=== PATIENT | female | born 1990 | race Caucasian/White ===

== ENCOUNTER 2021-06-21 14:51 | Inpatient (IN) | payer BC, OTHER ==
[2021-06-21] MEDS ORDERED: Lidocaine 1% 50 ML MDV INJECT SCH (15:34)
[2021-06-21] MEDS ORDERED: Nalbuphine 10 MG/1 ML Vial IVPUSH PRN (15:34)
[2021-06-21] MEDS ORDERED: Ondansetron 4 MG/2 ML SDV IVPUSH PRN (15:34)
[2021-06-21] MEDS ORDERED: Sodium Chloride 0.9% 10 ML Syringe FLUSH PRN (15:34)
[2021-06-21] MEDS ORDERED: Oxytocin/Lactated Ringers 10 UNIT/1,000 ML BAG IV SCH ×2 (15:45)
[2021-06-21] MEDS ORDERED: Misoprostol 25 MCG (1/4 of 100 MCG) Tab VAG ONE (15:48)
--- NOTE | 2021-06-21 18:04 | PCM.PREANE ---
Preanesthetic Assessment - Procedure Proposed Procedure: Labor epidural - Anesthesia/Transfusion/Family Hx Anesthesia History: No Prior Anesthesia Family History of Anesthesia Reaction: No Transfusion History: No Prior Transfusion(s) Intubation History: Unknown - Review of Systems General: No Symptoms Pulmonary: No Symptoms Cardiovascular: No Symptoms Gastrointestinal: Abdominal Pain (uterine contractions) Neurological: Headache, Other (carpal tunnel with ) - Physical Assessment NPO Status Date: 06/21/21 NPO Status Time: 18:00 Vital Signs: Last Vital Signs Temp 98.4 F 06/21/21 15:08 Pulse 81 06/21/21 15:08 Resp 16 06/21/21 15:08 BP 149/89 H 06/21/21 15:08 Pulse Ox Height: 1.78 m Weight: 102.058 kg ASA Class: 2 Mental Status: Alert & Oriented x3 Airway Class: Mallampati = 2 Thyro-Mental Finger Breadths: 3 Mouth Opening Finger Breadths: 3 ROM/Head Extension: Full Lungs: Clear to Auscultation, Normal Respiratory Effort Cardiovascular: Regular Rate, Regular Rhythm, No Murmurs - Lab Values: Laboratory Last Values WBC 9.91 K/mm3 (3.98-10.04) 06/21/21 16:00 RBC 3.96 M/mm3 (3.98-5.22) L 06/21/21 16:00 Hgb 11.6 gm/dl (11.2-15.7) 06/21/21 16:00 Hct 36.2 % (34.1-44.9) 06/21/21 16:00 MCV 91.4 fl (79.4-94.8) 06/21/21 16:00 MCH 29.3 pg (25.6-32.2) 06/21/21 16:00 MCHC 32.0 g/dl (32.2-35.5) L 06/21/21 16:00 RDW Std Deviation 43.4 fL (36.4-46.3) 06/21/21 16:00 Plt Count 241 K/mm3 (182-369) 06/21/21 16:00 MPV 11.5 fl (9.4-12.3) 06/21/21 16:00 Neut % (Auto) 72.3 % (34.0-71.1) H 06/21/21 16:00 Lymph % (Auto) 16.9 % (19.3-51.7) L 06/21/21 16:00 [place] % (Auto) 9.3 % (4.7-12.5) 06/21/21 16:00 Eos % (Auto) 0.8 (0.7-5.8) 06/21/21 16:00 Baso % (Auto) 0.2 % (0.1-1.2) 06/21/21 16:00 Neut # (Auto) 7.17 K/mm3 (1.56-6.13) H 06/21/21 16:00 Lymph # (Auto) 1.67 K/mm3 (1.18-3.74) 06/21/21 16:00 [place] # (Auto) 0.92 K/mm3 (0.24-0.36) H 06/21/21 16:00 Eos # (Auto) 0.08 K/mm3 (0.04-0.36) 06/21/21 16:00 Baso # (Auto) 0.02 K/mm3 (0.01-0.08) 06/21/21 16:00 Sodium 140 mEq/L (136-145) 06/21/21 15:34 Potassium 3.8 mEq/L (3.5-5.1) 06/21/21 15:34 Chloride 106 mEq/L (98-107) 06/21/21 15:34 Carbon Dioxide 24 mEq/L (21-32) 06/21/21 15:34 Anion Gap 13.8 (5-15) 06/21/21 15:34 BUN 8 mg/dL (7-18) 06/21/21 15:34 Creatinine 0.7 mg/dL (0.55-1.02) 06/21/21 15:34 Est Cr Clr Drug Dosing 124.77 mL/min 06/21/21 15:34 Estimated GFR (MDRD) > 60 mL/min (>60) 06/21/21 15:34 BUN/Creatinine Ratio 11.4 (14-18) L 06/21/21 15:34 Glucose 72 mg/dL (70-99) 06/21/21 15:34 Calcium 9.2 mg/dL (8.5-10.1) 06/21/21 15:34 Total Bilirubin 0.1 mg/dL (0.2-1.0) L 06/21/21 15:34 AST 15 U/L (15-37) 06/21/21 15:34 ALT 16 U/L (14-59) 06/21/21 15:34 Alkaline Phosphatase 161 U/L (46-116) H 06/21/21 15:34 Total Protein 6.4 g/dl (6.4-8.2) 06/21/21 15:34 Albumin 2.5 g/dl (3.4-5.0) L 06/21/21 15:34 Globulin 3.9 gm/dL 06/21/21 15:34 Albumin/Globulin Ratio 0.6 (1-2) L 06/21/21 15:34 Ur Random Creatinine 37.1 mg/dL (30.0-125.0) 06/21/21 15:34 U Random Total Protein 8.5 mg/dL (0.0-11.8) 06/21/21 15:34 Protein/Creatinin Ratio 229.1 mg/g (0-149) H 06/21/21 15:34 Blood Type O POSITIVE 06/21/21 16:30 Gel Antibody Screen Negative 06/21/21 16:30 - Allergies Allergies/Adverse Reactions: Allergies Allergy/AdvReac Type Severity Reaction Status Date / Time No Known Allergies Allergy Verified 06/21/21 15:07 - Acknowledgements Anesthesia Type Planned: Epidural Pt an Appropriate Candidate for the Planned Anesthesia: Yes Alternatives and Risks of Anesthesia Discussed w Pt/Guardian: Yes Pt/Guardian Understands and Agrees with Anesthesia Plan: Yes PreAnesthesia Questionnaire HEENT History: Reports: Impaired Vision Cardiovascular History: Reports: None Respiratory History: 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) Gastrointestinal History: Reports: GERD Genitourinary History: Reports: None 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: , Spontaneous Musculoskeletal History: Reports: None Neurological History: Reports: None Psychiatric History: Reports: None Endocrine/Metabolic History: Reports: None Hematologic History: Reports: None Immunologic History: Reports: None Oncologic (Cancer) History: Reports: None Dermatologic History: Reports: None - Infectious Disease History Infectious Disease History: Reports: Other (See Below) Other Infectious Disease History: covid May 2020 - Past Surgical History HEENT Surgical History: Reports: Oral Surgery (wisdom teeth) - SUBSTANCE USE Tobacco Use Status *Q: Never Tobacco User Tobacco Use Within Last Twelve Months: No Second Hand Smoke Exposure: No Days Per Week of Alcohol Use: 0 Number of Drinks Per Day: 0 Total Drinks Per Week: 0 Recreational Drug Use History: No - HOME MEDS Home Medications: Home Meds Albuterol Sulfate [Proair Digihaler] 90 mcg IH ASDIRECTED PRN 06/21/21 [History] #103/Iron Fumarate/Fa [ ] 1 each PO DAILY 06/21/21 [History] - CURRENT (IN HOUSE) MEDS Current Meds: Current Medications Lactated Ringer's (Ringers, Lactated) 1,000 mls @ 100 mls/hr IV ASDIRECTED ASHLEY Oxytocin/Lactated Ringer's (Pitocin In Lr 10 Units/1,000 Ml) 10 unit in 1,000 mls @ 12 mls/hr IV TITRATE ASHLEY; Protocol Oxytocin/Lactated Ringer's (Pitocin In Lr 10 Units/1,000 Ml) 10 unit in 1,000 mls @ 500 mls/hr IV .CONTINUOUS ASHLEY Lidocaine HCl (Lidocaine 1% 50 Ml Mdv) 50 ml INJECT ONETIME ASHLEY Nalbuphine HCl (Nalbuphine 10 Mg/1 Ml Vial) 10 mg IVPUSH Q2H PRN PRN Reason: Pain Ondansetron HCl (Ondansetron 4 Mg/2 Ml Sdv) 4 mg IVPUSH Q4H PRN PRN Reason: Nausea/Vomiting Sodium Chloride (Sodium Chloride 0.9% 10 Ml Syringe) 10 ml FLUSH ASDIRECTED PRN PRN Reason: Keep Vein Open Discontinued Medications Misoprostol (Misoprostol 25 Mcg (1/4 Of 100 Mcg) Tab) 25 mcg VAG ONETIME ONE Stop: 06/21/21 15:49
[2021-06-21] MEDS ORDERED: ePHEDrine 50 MG/ML SDV IVPUSH PRN (18:22)
[2021-06-21] MEDS ORDERED: diphenhydrAMINE 50 MG/ML SDV IVPUSH PRN (18:22)
[2021-06-21] MEDS ORDERED: Bupivacaine/fentaNYL/NS 100 ML Bag EPIDUR PRN (18:22)
[2021-06-21] MEDS ORDERED: fentaNYL 100 MCG/2 ML SDV EPIDUR PRN (18:22)
--- NOTE | 2021-06-21 20:10 | PCM.LDHP ---
L&D History of Present Illness - General Date of Service: 06/21/21 Admit Problem/Dx: Patient Status Order with Admit Dx/Problem 06/21/21 15:34 Patient Status [ADT] Routine Admission Diagnosis/Problem Admission Diagnosis/Problem Source of Information: Patient History Limitations: Reports: No Limitations - History of Present Illness Introduction:: Magdalena Castro is a 30-year-old -0-1-0 female at 38 weeks 5 days (EVA 06/30/2021) by a 7-week ultrasound who presents with concerns about blood pressures at home. She reports that she was having multiple blood pressures into the 140s systolic that would go down into the 120s to 130s with rest. She did not mention what the diastolic blood pressures were. She was first noted to have an elevated blood pressure in the clinic when she was seen by her regular RIP TAILER last week. She had been monitoring her blood pressures throughout the weekend and into today. She has had a mild headache at home and did take Tylenol and feels like it did improve. She denies any significant headache. She denies any headache at this time. She denies any epigastric pain or spots in her vision. She denies any contractions or cramping. Denies any leaking of fluid or vaginal bleeding. Reports that she is having good movement. Timing/Duration: Reports: intermittent Associated Symptoms: Denies: vaginal bleeding, vaginal discharge, vaginal fluid Present Illness Comments:: Magdalena Castro is a 30-year-old -0-1-0 female at 38 weeks 5 days (EVA 06/30/2021) by a 7-week ultrasound who presents with elevated blood pressures. Patient has had routine care with Dr. Souza starting at 7 weeks gestational age. Her has been overall uncomplicated. She had a normal anatomy ultrasound. She received the Tdap vaccine on 04/08/2021. She received the first dose of the COVID-19 vaccine on 06/01/2021. She received influenza vaccine on 06/08/2021. Her GBS swab was negative. Her is complicated by: * Gestational hypertension noted on admission to labor and delivery with ongoing multiple mild range blood pressures into the 140s to 150s systolic. Her lab work was not consistent with preeclampsia and she did not have any severe features of preeclampsia. RIP TAILER history -0-1-0 G1: 05/2020, SAB, 6 weeks gestational age G2: Current labs Blood type: O+ Antibody screen: Negative First trimester hematocrit/hemoglobin: 46.0%/15.1 on 12/07/2020 Platelets: 290 on 12/07/2020 Rubella status: Immune Hepatitis B surface antigen: Negative RPR: Negative Hepatitis C: Negative HIV: Negative Gonorrhea: Negative Chlamydia: Negative One hour glucose tolerance test: 105 Second trimester hematocrit/hemoglobin: 38.4%/12.9 on 04/08/2021 Platelets: 289 on 04/08/2021 GBS status: Negative - Related Data Allergies/Adverse Reactions: Allergies Allergy/AdvReac Type Severity Reaction Status Date / Time No Known Allergies Allergy Verified 06/21/21 15:07 Home Medications: Home Meds Albuterol Sulfate [Proair Digihaler] 90 mcg IH ASDIRECTED PRN 06/21/21 [History] #103/Iron Fumarate/Fa [ ] 1 each PO DAILY 06/21/21 [History] Past Medical History HEENT History: Reports: Impaired Vision Cardiovascular History: Reports: None Respiratory History: 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) Gastrointestinal History: Reports: GERD Genitourinary History: Reports: None RIP TAILER History: Reports: , Spontaneous : 2 Para: 0 Musculoskeletal History: Reports: None Neurological History: Reports: None Psychiatric History: Reports: None Endocrine/Metabolic History: Reports: None Hematologic History: Reports: None Immunologic History: Reports: None Oncologic (Cancer) History: Reports: None Dermatologic History: Reports: None - Infectious Disease History Infectious Disease History: Reports: Other (See Below) Other Infectious Disease History: covid May 2020 - Past Surgical History HEENT Surgical History: Reports: Oral Surgery (wisdom teeth) Social & Family History - Family History Family Medical History: Unobtainable - Tobacco Use Tobacco Use Status *Q: Never Tobacco User Second Hand Smoke Exposure: No - Tobacco Core Measures Tobacco Use/Smoking Within Last 30 Days: No Smokeless Tobacco Use in Last 30 Days: No - Caffeine Use Caffeine Use: Reports: Coffee, Soda - Alcohol Use Days Per Week of Alcohol Use: 0 Number of Drinks Per Day: 0 Total Drinks Per Week: 0 - Recreational Drug Use Recreational Drug Use: No - Living Situation & Occupation Living situation: Reports: , with Spouse H&P Review of Systems - Review of Systems: Review Of Systems: See Below General: Denies: Fever, Chills, Malaise, Weakness HEENT: Reports: Glasses, Headaches (Mild that have been intermittent throughout the day). Denies: Rhinitis, Post Nasal Drip, Sinus Congestion, Sore Throat, Visual Changes Pulmonary: Denies: Shortness of Breath, Wheezing, Pleuritic Chest Pain, Cough Cardiovascular: Denies: Chest Pain, Palpitations, Dyspnea on Exertion, Orthopnea Gastrointestinal: Denies: Abdominal Pain, Constipation, Diarrhea, Nausea, Vomiti ng Genitourinary: Denies: Dysuria, Frequency, Burning, Pain, Urgency Musculoskeletal: Reports: Back Pain (and pelvic pain of ) Skin: Denies: Rash, Lesions Psychiatric: Denies: Depression, Anxiety L&D Exam - Exam Exam: See Below - Vital Signs Vital Signs: Last Vital Signs Temp 36.9 C 06/21/21 15:08 Pulse 81 06/21/21 15:08 Resp 16 06/21/21 15:08 BP 149/89 H 06/21/21 15:08 Pulse Ox Weight: 102.058 kg - OB Specific Contraction Duration (sec): 45-60 Contraction Frequency (min): 5-7 Contraction Intensity: Mild to Moderate Movement: Active Heart Tones: Present Heart Tones per Min: 135 (+15 x 15 accelerations, no decelerations) Heart Rate (FHR) Variability: Moderate (6-25 bpm) Presentation: Vertex (By bedside ultrasound) Estimated Weight: 8-8.5 pounds by Cristian - Pretty Score Pretty Score Cervix Position: Posterior Pretty Score Consistency: Soft Pretty Score Effacement: 31-50% (50%) Pretty Score Dilation: 1-2 cm (0.5 cm) Pretty Score 's Station: -3 Pretty Score Total: 4 - Exam General: Alert, Oriented HEENT: Conjunctiva Clear, EOMI Neck: Supple, Trachea Midline Lungs: Clear to Auscultation, Normal Respiratory Effort Cardiovascular: Regular Rate, Regular Rhythm GI/Abdominal Exam: Soft, Non-Tender, No Distention, Other (Gravid). No: Guarding, Rigid, Rebound Genitourinary: Normal external exam Extremities: Normal Inspection, No Pedal Edema Skin: Warm, Dry, Intact Psychiatric: Alert, Normal Affect, Normal Mood - Patient Data Lab Results Last 24 hrs: Laboratory Results - last 24 hr 06/21/21 06/21/21 06/21/21 Range/Units 15:34 15:34 16:00 WBC 9.91 (3.98-10.04) K/mm3 RBC 3.96 L (3.98-5.22) M/mm3 Hgb 11.6 (11.2-15.7) gm/dl Hct 36.2 (34.1-44.9) % MCV 91.4 (79.4-94.8) fl MCH 29.3 (25.6-32.2) pg MCHC 32.0 L (32.2-35.5) g/dl RDW Std Deviation 43.4 (36.4-46.3) fL Plt Count 241 (182-369) K/mm3 MPV 11.5 (9.4-12.3) fl Neut % (Auto) 72.3 H (34.0-71.1) % Lymph % (Auto) 16.9 L (19.3-51.7) % [place] % (Auto) 9.3 (4.7-12.5) % Eos % (Auto) 0.8 (0.7-5.8) Baso % (Auto) 0.2 (0.1-1.2) % Neut # (Auto) 7.17 H (1.56-6.13) K/mm3 Lymph # (Auto) 1.67 (1.18-3.74) K/mm3 [place] # (Auto) 0.92 H (0.24-0.36) K/mm3 Eos # (Auto) 0.08 (0.04-0.36) K/mm3 Baso # (Auto) 0.02 (0.01-0.08) K/mm3 Sodium 140 (136-145) mEq/L Potassium 3.8 (3.5-5.1) mEq/L Chloride 106 (98-107) mEq/L Carbon Dioxide 24 (21-32) mEq/L Anion Gap 13.8 (5-15) BUN 8 (7-18) mg/dL Creatinine 0.7 (0.55-1.02) mg/dL Est Cr Clr Drug Dosing 124.77 mL/min Estimated GFR (MDRD) > 60 (>60) mL/min BUN/Creatinine Ratio 11.4 L (14-18) Glucose 72 (70-99) mg/dL Calcium 9.2 (8.5-10.1) mg/dL Total Bilirubin 0.1 L (0.2-1.0) mg/dL AST 15 (15-37) U/L ALT 16 (14-59) U/L Alkaline Phosphatase 161 H (46-116) U/L Total Protein 6.4 (6.4-8.2) g/dl Albumin 2.5 L (3.4-5.0) g/dl Globulin 3.9 gm/dL Albumin/Globulin Ratio 0.6 L (1-2) Ur Random Creatinine 37.1 (30.0-125.0) mg/dL U Random Total Protein 8.5 (0.0-11.8) mg/dL Protein/Creatinin Ratio 229.1 H (0-149) mg/g Blood Type Gel Antibody Screen 06/21/21 Range/Units 16:30 WBC (3.98-10.04) K/mm3 RBC (3.98-5.22) M/mm3 Hgb (11.2-15.7) gm/dl Hct (34.1-44.9) % MCV (79.4-94.8) fl MCH (25.6-32.2) pg MCHC (32.2-35.5) g/dl RDW Std Deviation (36.4-46.3) fL Plt Count (182-369) K/mm3 MPV (9.4-12.3) fl Neut % (Auto) (34.0-71.1) % Lymph % (Auto) (19.3-51.7) % [place] % (Auto) (4.7-12.5) % Eos % (Auto) (0.7-5.8) Baso % (Auto) (0.1-1.2) % Neut # (Auto) (1.56-6.13) K/mm3 Lymph # (Auto) (1.18-3.74) K/mm3 [place] # (Auto) (0.24-0.36) K/mm3 Eos # (Auto) (0.04-0.36) K/mm3 Baso # (Auto) (0.01-0.08) K/mm3 Sodium (136-145) mEq/L Potassium (3.5-5.1) mEq/L Chloride (98-107) mEq/L Carbon Dioxide (21-32) mEq/L Anion Gap (5-15) BUN (7-18) mg/dL Creatinine (0.55-1.02) mg/dL Est Cr Clr Drug Dosing mL/min Estimated GFR (MDRD) (>60) mL/min BUN/Creatinine Ratio (14-18) Glucose (70-99) mg/dL Calcium (8.5-10.1) mg/dL Total Bilirubin (0.2-1.0) mg/dL AST (15-37) U/L ALT (14-59) U/L Alkaline Phosphatase (46-116) U/L Total Protein (6.4-8.2) g/dl Albumin (3.4-5.0) g/dl Globulin gm/dL Albumin/Globulin Ratio (1-2) Ur Random Creatinine (30.0-125.0) mg/dL U Random Total Protein (0.0-11.8) mg/dL Protein/Creatinin Ratio (0-149) mg/g Blood Type O POSITIVE Gel Antibody Screen Negative Result Diagrams: 06/21/21 16:00 06/21/21 15:34 - Problem List (1) 38 weeks gestation of SNOMED Code(s): 30767747 ICD Code: Z3A.38 - 38 WEEKS GESTATION OF Status: Acute Current Visit: Yes (2) Gestational hypertension SNOMED Code(s): 29128573 ICD Code: O13.9 - GESTATIONAL HTN W/O SIGNIFICANT PROTEINURIA, UNSP TRIMESTER Status: Acute Current Visit: Yes Problem List Initiated/Reviewed/Updated: Yes Orders Last 24hrs: Active Orders 24 hr Category Date Time Status Patient Status [ADT] Routine ADT 06/21/21 15:34 Active Activity as Tolerated [RC] PFP Care 06/21/21 15:34 Active Communication Order [RC] ASDIRECTED Care 06/21/21 15:34 Active Communication Order [RC] ASDIRECTED Care 06/21/21 19:57 Ordered Communication Order [RC] ASDIRECTED Care 06/21/21 19:57 Ordered Communication Order [RC] ASDIRECTED Care 06/21/21 19:57 Ordered Heart Tones [RC] ASDIRECTED Care 06/21/21 15:35 Active Monitoring [RC] INTERMITTENT Care 06/21/21 19:57 Ordered Non Stress Test [RC] PER UNIT ROUTINE Care 06/21/21 15:34 Active Notify Provider [RC] ASDIRECTED Care 06/21/21 18:22 Active Notify Provider [RC] ASDIRECTED Care 06/21/21 19:57 Ordered Notify Provider [RC] PFP Care 06/21/21 15:34 Active Notify Provider [RC] PRN Care 06/21/21 15:34 Active Peripheral IV Care [RC] . DIRECTED Care 06/21/21 15:35 Active Pump Management, Intrathecal [RC] ASDIRECTED Care 06/21/21 15:36 Active Up ad Lorenza [RC] ASDIRECTED Care 06/21/21 15:09 Active Urinary Catheter Assessment [RC] ASDIRECTED Care 06/21/21 15:34 Active Vaginal Exam [RC] ASDIRECTED Care 06/21/21 19:57 Ordered Vital Signs [RC] PER UNIT ROUTINE Care 06/21/21 15:34 Active Regular Diet [DIET] Diet 06/21/21 Lunch Active CORONAVIRUS COVID-19 AICHA [MOLEC] Stat Lab 06/21/21 15:54 Received PATIENT RETYPE [BBK] Routine Lab 06/21/21 17:57 Ordered RAPID PLASMA REAGIN,RPR [CHEM] Routine Lab 06/21/21 15:34 Ordered Bupivacaine/fentaNYL/NS [fentaNYL/Bupivacaine/NS 2 MCG- Med 06/21/21 18:22 Active 0.125% 100 ML] 100 ml EPIDUR ASDIRECTED PRN Lactated Ringers [Ringers, Lactated] 1,000 ml Med 06/21/21 15:45 Active IV ASDIRECTED Lidocaine 1% [Xylocaine 1%] Med 06/21/21 15:34 Active 50 ml INJECT ONETIME Nalbuphine [Nubain] Med 06/21/21 15:34 Active 10 mg IVPUSH Q2H PRN Ondansetron [Zofran] Med 06/21/21 15:34 Active 4 mg IVPUSH Q4H PRN Oxytocin/Lactated Ringers [Pitocin in LR 10 Units/1,000 Med 06/21/21 15:45 Active ML] 10 unit in 1,000 ml IV .CONTINUOUS Oxytocin/Lactated Ringers [Pitocin in LR 10 Units/1,000 Med 06/21/21 15:45 Active ML] 10 unit in 1,000 ml IV TITRATE Sodium Chloride 0.9% [Saline Flush] Med 06/21/21 15:34 Active 10 ml FLUSH ASDIRECTED PRN diphenhydrAMINE [Benadryl] Med 06/21/21 18:22 Active 25 mg IVPUSH Q6H PRN ePHEDrine [ePHEDrine sulfate] Med 06/21/21 18:22 Active 5 mg IVPUSH ASDIRECTED PRN fentaNYL [Sublimaze] Med 06/21/21 18:22 Active 100 mcg EPIDUR Q3H PRN miSOPROStoL [Cytotec] Med 06/21/21 20:45 Ordered 50 mcg PO Q4H PRN Electronic Heart Tones Ext w TOCO [WOMSER] Oth 06/21/21 15:34 Ordered Routine Electronic Heart Tones Internal [WOMSER] Per Unit Oth 06/21/21 15:34 Ordered Routine Medication Administration Instruction [OM.PC] Oth 06/21/21 20:00 Ordered ASDIRECTED Peripheral IV Insertion Adult [OM.PC] Routine Oth 06/21/21 15:34 Ordered Resuscitation Status Routine Resus Stat 06/21/21 15:08 Ordered Medication Orders Diphenhydramine HCl (Diphenhydramine 50 Mg/Ml Sdv) 25 mg IVPUSH Q6H PRN PRN Reason: pruritis Ephedrine Sulfate (Ephedrine 50 Mg/Ml Sdv) 5 mg IVPUSH ASDIRECTED PRN PRN Reason: Hypotension Fentanyl (Fentanyl 100 Mcg/2 Ml Sdv) 100 mcg EPIDUR Q3H PRN PRN Reason: Pain Fentanyl/Bupivacaine HCl (Bupivacaine/Fentanyl/Ns 100 Ml Bag) 100 ml EPIDUR ASDIRECTED PRN PRN Reason: Pain Lactated Ringer's (Ringers, Lactated) 1,000 mls @ 100 mls/hr IV ASDIRECTED ASHLEY Oxytocin/Lactated Ringer's (Pitocin In Lr 10 Units/1,000 Ml) 10 unit in 1,000 mls @ 12 mls/hr IV TITRATE ASHLEY; Protocol Oxytocin/Lactated Ringer's (Pitocin In Lr 10 Units/1,000 Ml) 10 unit in 1,000 mls @ 500 mls/hr IV .CONTINUOUS ASHLEY Lidocaine HCl (Lidocaine 1% 50 Ml Mdv) 50 ml INJECT ONETIME ASHLEY Misoprostol (Misoprostol 25 Mcg (1/4 Of 100 Mcg) Tab) 50 mcg PO Q4H PRN PRN Reason: cervical ripening Nalbuphine HCl (Nalbuphine 10 Mg/1 Ml Vial) 10 mg IVPUSH Q2H PRN PRN Reason: Pain Ondansetron HCl (Ondansetron 4 Mg/2 Ml Sdv) 4 mg IVPUSH Q4H PRN PRN Reason: Nausea/Vomiting Sodium Chloride (Sodium Chloride 0.9% 10 Ml Syringe) 10 ml FLUSH ASDIRECTED PRN PRN Reason: Keep Vein Open Assessment/Plan Comment:: Magdalena Castro is a 30-year-old -0-1-0 at 38 weeks 5 days (EVA 06/30/2021) by a 7-week ultrasound who presents with gestational hypertension and recommended to undergo induction of labor secondary to this gestational hypertension Patient has had multiple mild range blood pressures with systolic blood pressure ranges between 120s to 150s with majority of the blood pressures in the 140s. Her diastolic blood pressures have been overall normal in the 70s to 80s. She does not have any severe features of preeclampsia and only has a mild headache that is not overall bothersome for the patient. Her labs were all within normal limits and did not show any significant abnormalities that would indicate preeclampsia. Her urine protein/creatinine ratio was 0.229 which is normal. Refer to observation for elective induction of labor Patient had start of induction of labor with Cytotec 25 mcg vaginally at 16:45 and will increase to 50 mcg vaginally every 4 hours for 2 additional doses Recommend for continuous monitoring given patient is undergoing induction of labor due to gestational hypertension Place IV and have Lactated Ringer's at 125 ml/hr if not tolerating regular diet May have regular diet while on Cytotec induction Activity as tolerated May have epidural as desired Plans to breast-feed after delivery Cervical exam was performed and cervix was not amenable for mechanical dilation with Venegas bulb or Cook catheter at this time. Plan to recheck in several hours to see if there has been additional cervical change that could allow for placement of the Venegas bulb or Cook catheter Anticipate vaginal delivery unless otherwise indicated Emery Bro MD 8:25 PM 06/21/2021
[2021-06-21] MEDS: Misoprostol 25 MCG (1/4 of 100 MCG) Tab PO PRN (20:48)
[2021-06-21] MEDS: Acetaminophen 325 MG Tab PO PRN (23:34)
--- NOTE | 2021-06-21 23:35 | PCM.PNLD ---
Labor Progress Note - VS & Meds Vital Signs: Last Vital Signs Temp 36.9 C 06/21/21 15:08 Pulse 81 06/21/21 15:08 Resp 16 06/21/21 15:08 BP 149/89 H 06/21/21 15:08 Pulse Ox Active Medications: Current Medications Acetaminophen (Acetaminophen 325 Mg Tab) 650 mg PO Q4H PRN PRN Reason: Pain Diphenhydramine HCl (Diphenhydramine 50 Mg/Ml Sdv) 25 mg IVPUSH Q6H PRN PRN Reason: pruritis Ephedrine Sulfate (Ephedrine 50 Mg/Ml Sdv) 5 mg IVPUSH ASDIRECTED PRN PRN Reason: Hypotension Fentanyl (Fentanyl 100 Mcg/2 Ml Sdv) 100 mcg EPIDUR Q3H PRN PRN Reason: Pain Fentanyl/Bupivacaine HCl (Bupivacaine/Fentanyl/Ns 100 Ml Bag) 100 ml EPIDUR ASDIRECTED PRN PRN Reason: Pain Lactated Ringer's (Ringers, Lactated) 1,000 mls @ 100 mls/hr IV ASDIRECTED ASHLEY Oxytocin/Lactated Ringer's (Pitocin In Lr 10 Units/1,000 Ml) 10 unit in 1,000 mls @ 12 mls/hr IV TITRATE ASHLEY; Protocol Oxytocin/Lactated Ringer's (Pitocin In Lr 10 Units/1,000 Ml) 10 unit in 1,000 mls @ 500 mls/hr IV .CONTINUOUS ASHLEY Lidocaine HCl (Lidocaine 1% 50 Ml Mdv) 50 ml INJECT ONETIME ASHLEY Misoprostol (Misoprostol 25 Mcg (1/4 Of 100 Mcg) Tab) 50 mcg PO Q4H PRN PRN Reason: cervical ripening Last Admin: 06/21/21 20:48 Dose: 50 mcg Documented by: Nalbuphine HCl (Nalbuphine 10 Mg/1 Ml Vial) 10 mg IVPUSH Q2H PRN PRN Reason: Pain Ondansetron HCl (Ondansetron 4 Mg/2 Ml Sdv) 4 mg IVPUSH Q4H PRN PRN Reason: Nausea/Vomiting Sodium Chloride (Sodium Chloride 0.9% 10 Ml Syringe) 10 ml FLUSH ASDIRECTED PRN PRN Reason: Keep Vein Open Discontinued Medications Misoprostol (Misoprostol 25 Mcg (1/4 Of 100 Mcg) Tab) 25 mcg VAG ONETIME ONE Stop: 06/21/21 15:49 Last Admin: 06/21/21 16:45 Dose: 25 mcg Documented by: - Uterine Contractions Uterine Monitoring Mode: External [place] Contraction Frequency (min): 1-3 Contraction Duration (sec): 45-60 Contraction Intensity: Moderate Uterine Resting Tone: Soft - Monitoring Monitor Mode: Doppler/Auscultation Heart Rate (FHR) Baseline: 135 Heart Rate (FHR) Per Doppler: 135 Heart Rate (FHR) Variability: Moderate (6-25 bpm) Accelerations: Present, 15x15 Decelerations: None Strip Review: Category I - Vaginal Exam Dilation (cm): 1 cm Effacement (Percent): 80% Station: -1 Cervical Position: Anterior Sterile Vaginal Exam Performed By: Emery Bro Vaginal Exam Comment: Patient was noted to have cervical dilation to 1 cm. A Cook catheter was then placed manually through the cervix with stylette in place. The vaginal balloon was inflated with 60 mL of saline. The uterine balloon was then filled with 60 mL of saline. The stylette was removed. Tension was applied to confirm that the Cook catheter was in correct position and this was noted. Patient reported increased amount of pelvic pressure with the Cook catheter in place but was not having significant pain. Mother and infant tolerated procedure without difficulty. - Labor Progress (Free Text) Labor Progress: Magdalena Castro is a 30-year-old -0-1-0 female at 38 weeks 5 days undergoing induction of labor secondary to gestational hypertension with complicated by Covid positive infection noted on admission Patient had Cook catheter placed without difficulty. The uterine and vaginal balloons were both filled with 60 mL of saline. Patient with some progress of cervical dilation from 0.5 to 1 cm. The effacement went from 60 to 70% to 80%. Continue Cytotec for cervical ripening unless the Cook catheter cervical ripening balloon comes out. If the Cook catheter cervical ripening balloon comes out then she should be started on Pitocin for induction of contractions Routine vitals Patient may have epidural as desired Continuous monitoring Anticipate vaginal delivery unless otherwise indicated Emery Bro MD 11:34 PM 06/21/2021
[2021-06-22] MEDS: Misoprostol 25 MCG (1/4 of 100 MCG) Tab PO PRN (02:18)
[2021-06-22] MEDS: Lactated Ringers 1,000 ML IV SCH ×2 (06:17→10:34)
[2021-06-22] MEDS: Acetaminophen 325 MG Tab PO PRN (09:13)
--- NOTE | 2021-06-22 11:00 | PCM.PREANE ---
Preanesthetic Assessment - Procedure Proposed Procedure: epidural - Anesthesia/Transfusion/Family Hx Anesthesia History: No Prior Anesthesia Family History of Anesthesia Reaction: No Transfusion History: No Prior Transfusion(s) Intubation History: Unknown - Review of Systems General: Fatigue, Malaise Pulmonary: No Symptoms Cardiovascular: No Symptoms Gastrointestinal: Abdominal Pain (labor) Neurological: No Symptoms Other: Reports: None - Physical Assessment NPO Status Date: 06/21/21 NPO Status Time: 18:00 Vital Signs: Last Vital Signs Temp 36.9 C 06/21/21 15:08 Pulse 81 06/21/21 15:08 Resp 16 06/21/21 15:08 BP 149/89 H 06/21/21 15:08 Pulse Ox Height: 1.78 m Weight: 102.058 kg ASA Class: 2 Mental Status: Alert & Oriented x3 Airway Class: Mallampati = 1 Dentition: Reports: Normal Dentition Thyro-Mental Finger Breadths: 3 Mouth Opening Finger Breadths: 3 ROM/Head Extension: Full Lungs: Clear to Auscultation, Normal Respiratory Effort Cardiovascular: Regular Rate, Regular Rhythm - Lab Values: Laboratory Last Values WBC 9.91 K/mm3 (3.98-10.04) 06/21/21 16:00 RBC 3.96 M/mm3 (3.98-5.22) L 06/21/21 16:00 Hgb 11.6 gm/dl (11.2-15.7) 06/21/21 16:00 Hct 36.2 % (34.1-44.9) 06/21/21 16:00 MCV 91.4 fl (79.4-94.8) 06/21/21 16:00 MCH 29.3 pg (25.6-32.2) 06/21/21 16:00 MCHC 32.0 g/dl (32.2-35.5) L 06/21/21 16:00 RDW Std Deviation 43.4 fL (36.4-46.3) 06/21/21 16:00 Plt Count 241 K/mm3 (182-369) 06/21/21 16:00 MPV 11.5 fl (9.4-12.3) 06/21/21 16:00 Neut % (Auto) 72.3 % (34.0-71.1) H 06/21/21 16:00 Lymph % (Auto) 16.9 % (19.3-51.7) L 06/21/21 16:00 [place] % (Auto) 9.3 % (4.7-12.5) 06/21/21 16:00 Eos % (Auto) 0.8 (0.7-5.8) 06/21/21 16:00 Baso % (Auto) 0.2 % (0.1-1.2) 06/21/21 16:00 Neut # (Auto) 7.17 K/mm3 (1.56-6.13) H 06/21/21 16:00 Lymph # (Auto) 1.67 K/mm3 (1.18-3.74) 06/21/21 16:00 [place] # (Auto) 0.92 K/mm3 (0.24-0.36) H 06/21/21 16:00 Eos # (Auto) 0.08 K/mm3 (0.04-0.36) 06/21/21 16:00 Baso # (Auto) 0.02 K/mm3 (0.01-0.08) 06/21/21 16:00 Sodium 140 mEq/L (136-145) 06/21/21 15:34 Potassium 3.8 mEq/L (3.5-5.1) 06/21/21 15:34 Chloride 106 mEq/L (98-107) 06/21/21 15:34 Carbon Dioxide 24 mEq/L (21-32) 06/21/21 15:34 Anion Gap 13.8 (5-15) 06/21/21 15:34 BUN 8 mg/dL (7-18) 06/21/21 15:34 Creatinine 0.7 mg/dL (0.55-1.02) 06/21/21 15:34 Est Cr Clr Drug Dosing 124.77 mL/min 06/21/21 15:34 Estimated GFR (MDRD) > 60 mL/min (>60) 06/21/21 15:34 BUN/Creatinine Ratio 11.4 (14-18) L 06/21/21 15:34 Glucose 72 mg/dL (70-99) 06/21/21 15:34 Calcium 9.2 mg/dL (8.5-10.1) 06/21/21 15:34 Total Bilirubin 0.1 mg/dL (0.2-1.0) L 06/21/21 15:34 AST 15 U/L (15-37) 06/21/21 15:34 ALT 16 U/L (14-59) 06/21/21 15:34 Alkaline Phosphatase 161 U/L (46-116) H 06/21/21 15:34 Total Protein 6.4 g/dl (6.4-8.2) 06/21/21 15:34 Albumin 2.5 g/dl (3.4-5.0) L 06/21/21 15:34 Globulin 3.9 gm/dL 06/21/21 15:34 Albumin/Globulin Ratio 0.6 (1-2) L 06/21/21 15:34 Ur Random Creatinine 37.1 mg/dL (30.0-125.0) 06/21/21 15:34 U Random Total Protein 8.5 mg/dL (0.0-11.8) 06/21/21 15:34 Protein/Creatinin Ratio 229.1 mg/g (0-149) H 06/21/21 15:34 SARS-CoV-2 RNA (AICHA) Positive (NEGATIVE) H 06/21/21 15:54 Blood Type O POSITIVE 06/21/21 16:30 Gel Antibody Screen Negative 06/21/21 16:30 - Allergies Allergies/Adverse Reactions: Allergies Allergy/AdvReac Type Severity Reaction Status Date / Time No Known Allergies Allergy Verified 06/21/21 15:07 - Anesthesia Plan Pre-Op Medication Ordered: None - Acknowledgements Anesthesia Type Planned: Epidural Pt an Appropriate Candidate for the Planned Anesthesia: Yes Alternatives and Risks of Anesthesia Discussed w Pt/Guardian: Yes Pt/Guardian Understands and Agrees with Anesthesia Plan: Yes PreAnesthesia Questionnaire HEENT History: Reports: Impaired Vision Cardiovascular History: Reports: None Respiratory History: 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) Gastrointestinal History: Reports: GERD Genitourinary History: Reports: None [employer] History: Reports: , Spontaneous Musculoskeletal History: Reports: None Neurological History: Reports: None Psychiatric History: Reports: None Endocrine/Metabolic History: Reports: None Hematologic History: Reports: None Immunologic History: Reports: None Oncologic (Cancer) History: Reports: None Dermatologic History: Reports: None - Infectious Disease History Infectious Disease History: Reports: Other (See Below) Other Infectious Disease History: covid May 2020 - Past Surgical History HEENT Surgical History: Reports: Oral Surgery (wisdom teeth) - SUBSTANCE USE Tobacco Use Status *Q: Never Tobacco User Tobacco Use Within Last Twelve Months: No Second Hand Smoke Exposure: No Days Per Week of Alcohol Use: 0 Number of Drinks Per Day: 0 Total Drinks Per Week: 0 Recreational Drug Use History: No - HOME MEDS Home Medications: Home Meds Albuterol Sulfate [Proair Digihaler] 90 mcg IH ASDIRECTED PRN 06/21/21 [History] #103/Iron Fumarate/Fa [ ] 1 each PO DAILY 06/21/21 [History] - CURRENT (IN HOUSE) MEDS Current Meds: Current Medications Acetaminophen (Acetaminophen 325 Mg Tab) 650 mg PO Q4H PRN PRN Reason: Pain Last Admin: 06/22/21 09:13 Dose: 650 mg Documented by: Diphenhydramine HCl (Diphenhydramine 50 Mg/Ml Sdv) 25 mg IVPUSH Q6H PRN PRN Reason: pruritis Ephedrine Sulfate (Ephedrine 50 Mg/Ml Sdv) 5 mg IVPUSH ASDIRECTED PRN PRN Reason: Hypotension Fentanyl (Fentanyl 100 Mcg/2 Ml Sdv) 100 mcg EPIDUR Q3H PRN PRN Reason: Pain Last Admin: 06/22/21 10:30 Dose: 100 mcg Documented by: Fentanyl/Bupivacaine HCl (Bupivacaine/Fentanyl/Ns 100 Ml Bag) 100 ml EPIDUR ASDIRECTED PRN PRN Reason: Pain Last Admin: 06/22/21 10:31 Dose: 100 ml Documented by: Lactated Ringer's (Ringers, Lactated) 1,000 mls @ 100 mls/hr IV ASDIRECTED ASHLEY Last Admin: 06/22/21 06:17 Dose: 100 mls/hr Documented by: Oxytocin/Lactated Ringer's (Pitocin In Lr 10 Units/1,000 Ml) 10 unit in 1,000 mls @ 12 mls/hr IV TITRATE ASHLEY; Protocol Last Titration: 06/22/21 09:40 Dose: 6 munits/min, 36 mls/hr Documented by: Oxytocin/Lactated Ringer's (Pitocin In Lr 10 Units/1,000 Ml) 10 unit in 1,000 mls @ 500 mls/hr IV .CONTINUOUS ASHLEY Lidocaine HCl (Lidocaine 1% 50 Ml Mdv) 50 ml INJECT ONETIME ASHLEY Nalbuphine HCl (Nalbuphine 10 Mg/1 Ml Vial) 10 mg IVPUSH Q2H PRN PRN Reason: Pain Last Admin: 06/22/21 02:30 Dose: 10 mg Documented by: Ondansetron HCl (Ondansetron 4 Mg/2 Ml Sdv) 4 mg IVPUSH Q4H PRN PRN Reason: Nausea/Vomiting Sodium Chloride (Sodium Chloride 0.9% 10 Ml Syringe) 10 ml FLUSH ASDIRECTED PRN PRN Reason: Keep Vein Open Discontinued Medications Misoprostol (Misoprostol 25 Mcg (1/4 Of 100 Mcg) Tab) 25 mcg VAG ONETIME ONE Stop: 06/21/21 15:49 Last Admin: 06/21/21 16:45 Dose: 25 mcg Documented by: Misoprostol (Misoprostol 25 Mcg (1/4 Of 100 Mcg) Tab) 50 mcg PO Q4H PRN PRN Reason: cervical ripening Last Admin: 06/22/21 02:18 Dose: 50 mcg Documented by:
[2021-06-22] MEDS ORDERED: Bupivacaine 0.25% 10 ML SDV ONE (18:00)
[2021-06-22] MEDS ORDERED: Albuterol 6.7 GM Inhaler INH PRN (18:58)
--- NOTE | 2021-06-22 19:11 | PCM.SN.2 ---
- Free Text/Narrative Note: Delivery note: Stage I: Magdalena Castro is a 30-year-old G2 now para 1-0-1-1 female at 38 weeks 5 days ([facility] 06/30/2021) by a 7-week ultrasound admitted on the evening of 06/21/2021 who presented with concerns about elevated blood pressures at home. She reported that she was having multiple blood pressures into the 140s systolic that would go down into the 120s to 130s with rest. Upon evaluation in L&D blood pressures were noted to be high and patient was diagnosed with gestational hypertension. Because of the blood pressures, her gestational age and circumstances of the present situation patient was offered induction of labor which she accepted. Induction was started with Pitocin and with a Cook cervical balloon placement for cervical ripening. Cervical balloon fell out after approximately several hours with the resultant cervical dilation of approximately 3 to 4 cm. Vital signs remained stable with blood pressure in the borderline high level. Blood pressures did not reach the threshold at which antihypertensive were to be given. Her laboratory evaluation was consistent with gestational hypertension and not preeclampsia. Patient progressed slowly and steadily. Artificial rupture membranes was undertaken with resultant clear amniotic fluid. The patient underwent an epidural for analgesia in labor with good results. She achieved complete cervical dilation by approximately 1300 hrs. and over the course of the next 2 to 3 hours patient pushed well. Her heart ton remained reassuring throughout the course of the and labor care. Stage II: At 1556 hrs. Magdalena delivered a viable, 3760 g (8 pounds 1.5 ounce) male with Apgars of 8 and 9, a length of 21.0 inches and Apgars of 8 and 9. The baby delivered in a direct occiput anterior position followed by right occipital external restitution. The anterior shoulder was delivered with gentle downward pressure and slight rotation of the shoulder anterior and was followed with delivery of the posterior shoulder. The baby was then placed on mom's abdomen. He was dried with a warm blanket. Nose and mouth were bulb suction. The Pitocin was increased to 500 cc an hour to facilitate increase in uterine tone and decrease likelihood of bleeding. Patient was noted to have a small second-degree laceration. The umbilical cord was allowed to pulsate x2 to 3 minutes and then was clamped x2 and cut by the baby's Father Angelo. Umbilical cord had 3 vessels. Cord blood was obtained. The second degree perineal la ceration was repaired with 3-0 Monocryl in a routine fashion. Epidural analgesia was used for perineal laceration repair anesthesia with good results. Stage III: The placenta delivered at 1601 hrs. in a Sandhu presentation. It appeared intact and complete and was discarded per patient desire. The cord insertion was somewhat peripheral but still a normal variant. The estimated blood loss was approximately 200 cc. The patient plans to breast-feed. Condition: Good
[2021-06-22] MEDS ORDERED: Witch Hazel Medicated Pads 40/Jar TOP PRN (19:38)
[2021-06-22] MEDS ORDERED: Docusate Sodium 100 MG Cap PO PRN (19:38)
[2021-06-22] MEDS ORDERED: Acetaminophen 325 MG Tab PO PRN (19:38)
[2021-06-22] MEDS ORDERED: Benzocaine/Menthol 20%-0.5% Spray 78 GM Cannister TOP PRN (19:38)
[2021-06-22] MEDS ORDERED: Polyethylene Glycol 3350 Powder 17 GM Packet PO PRN (19:39)
[2021-06-22] MEDS: Ibuprofen 600 MG Tab PO PRN (21:20)
--- NOTE | 2021-06-23 06:37 | PCM48HPAN ---
Post Anesthesia Note - EVALUATION WITHIN 48HRS OF ANESTHETIC Vital Signs in Normal Range: Yes Patient Participated in Evaluation: Yes Respiratory Function Stable: Yes Airway Patent: Yes Cardiovascular Function Stable: Yes Hydration Status Stable: Yes Pain Control Satisfactory: Yes Nausea and Vomiting Control Satisfactory: Yes Mental Status Recovered: Yes Vital Signs: Last Vital Signs Temp 36.3 C 06/23/21 04:19 Pulse 65 06/23/21 04:19 Resp 14 06/23/21 04:19 BP 130/76 06/23/21 04:19 Pulse Ox 96 06/23/21 04:19
[2021-06-23] MEDS: Ibuprofen 600 MG Tab PO PRN (09:04)
== END 2021-06-23 18:58 | disposition home or self-care (01) | DRG 560 ==
LOC: JD.OB 14:51 → JD.OBCHECK 14:51 → JD.OB 15:44 → OBSVTOIN 06-22 15:56 → JD.OB 06-22 15:57
PROVIDERS: ADMIT Obstetrics & Gynecology; ATTEND Obstetrics & Gynecology
PROC: 10E0XZZ Delivery of Products of Conception, External Approach (ICD-10-PCS; principal; 2021-06-22)
PROC: 0KQM0ZZ Repair Perineum Muscle, Open Approach (ICD-10-PCS; principal; 2021-06-22)
PROC: 3E0R3BZ Introduction of Anesthetic Agent into Spinal Canal, Percutaneous Approach (ICD-10-PCS; principal; 2021-06-22)
PROC: 00HU33Z Insertion of Infusion Device into Spinal Canal, Percutaneous Approach (ICD-10-PCS; principal; 2021-06-22)
DX: O13.4 Gestational [pregnancy-induced] hypertension without significant proteinuria, complicating childbirth (principal); O98.52 Other viral diseases complicating childbirth; U07.1 COVID-19; Z37.0 Single live birth; Z3A.38 38 weeks gestation of pregnancy; O70.1 Second degree perineal laceration during delivery
CPT/HCPCS: 36415; 51702; 59025; 59409; 80053; 82570; 84156; 85025; 86850; 86900; 86901; A9270-GY; J2300; J2590; J3010; J3490; J7120; U0002

== ENCOUNTER 2022-11-10 07:39 | Inpatient (IN) | payer BC, OTHER ==
[~2022-11-10 07:39] MED LIST: Meperidine 50 MG/ML Vial IVPUSH PRN; Ondansetron 4 MG/2 ML SDV IVPUSH PRN; diphenhydrAMINE 50 MG/ML SDV IVPUSH PRN; fentaNYL 100 MCG/2 ML SDV IVPUSH PRN
[2022-11-10] MEDS ORDERED: Nalbuphine 10 MG/0.5 ML Syringe IVPUSH PRN (09:31)
[2022-11-10] MEDS ORDERED: Ondansetron 4 MG/2 ML SDV IVPUSH PRN (09:42)
[2022-11-10] MEDS ORDERED: Oxytocin/Lactated Ringers 10 UNIT/1,000 ML BAG IV SCH (09:45)
[2022-11-10] MEDS: Lactated Ringers 1,000 ML IV SCH ×2 (11:17→17:46)
[2022-11-10] MEDS ORDERED: Bupivacaine/fentaNYL/NS 100 ML Bag EPIDUR PRN (17:24)
[2022-11-10] MEDS ORDERED: fentaNYL 100 MCG/2 ML SDV EPIDUR PRN (17:24)
[2022-11-10] MEDS ORDERED: ePHEDrine 50 MG/ML SDV IVPUSH PRN (17:24)
[2022-11-10] MEDS ORDERED: diphenhydrAMINE 50 MG/ML SDV IVPUSH PRN (17:24)
[2022-11-10] MEDS ORDERED: Ropivacaine 0.2% PF 2 MG/ML 20 ML SDV ONE (20:00)
[2022-11-10] MEDS ORDERED: Sodium Chloride 0.9% 10 ML Syringe FLUSH SCH (21:00)
[2022-11-11] MEDS ORDERED: Witch Hazel Medicated Pads 40/Jar TOP PRN (00:37)
[2022-11-11] MEDS ORDERED: Ibuprofen 600 MG Tab PO PRN (00:37)
[2022-11-11] MEDS ORDERED: Benzocaine/Menthol 20%-0.5% Spray 78 GM Cannister TOP PRN (00:37)
[2022-11-11] MEDS ORDERED: Acetaminophen 325 MG Tab PO PRN (00:37)
== END 2022-11-12 10:38 | disposition home or self-care (01) | DRG 560 ==
LOC: JD.OB 07:39
PROVIDERS: ADMIT Obstetrics & Gynecology; ATTEND Obstetrics & Gynecology
PROC: 10E0XZZ Delivery of Products of Conception, External Approach (ICD-10-PCS; principal; 2022-11-10)
PROC: 10907ZC Drainage of Amniotic Fluid, Therapeutic from Products of Conception, Via Natural or Artificial Opening (ICD-10-PCS; 2022-11-10)
PROC: 0HQ9XZZ Repair Perineum Skin, External Approach (ICD-10-PCS; 2022-11-10)
PROC: 3E0R3BZ Introduction of Anesthetic Agent into Spinal Canal, Percutaneous Approach (ICD-10-PCS; 2022-11-10)
PROC: 00HU33Z Insertion of Infusion Device into Spinal Canal, Percutaneous Approach (ICD-10-PCS; 2022-11-10)
DX: O24.429 Gestational diabetes mellitus in childbirth, unspecified control (principal); Z37.0 Single live birth; Z3A.39 39 weeks gestation of pregnancy; O99.62 Diseases of the digestive system complicating childbirth; K21.9 Gastro-esophageal reflux disease without esophagitis; O99.52 Diseases of the respiratory system complicating childbirth; J45.909 Unspecified asthma, uncomplicated; Z86.16 Personal history of COVID-19
CPT/HCPCS: 01967; 36415; 51702; 59025; 59409; 81001; 82565; 82570; 82947; 83615; 84156; 84450; 84460; 84520; 84550; 85025; 86592; 86850; 86900; 86901; J2300; J2405; J2590; J2795; J3490; J7120

== ENCOUNTER 2023-12-26 14:56 | Inpatient (IN) | payer BC ==
[2023-12-26] MEDS: Lactated Ringers 1,000 ML IV SCH (15:32)
[2023-12-26 15:59] LABS: BASOPHILS PERCENT AUTO 0.2 % (0.0-1.0); EOSINOPHILS ABSOLUTE AUTO 0.1 K/mm3 (0.0-0.4); EOSINOPHILS PERCENT AUTO 0.8 % (0.0-6.0); HEMATOCRIT 38.6 % (37.0-47.0); IMMATURE GRAN ABSOLUTE AUTO 0.04 K/mm3 (0.00-0.05); IMMATURE GRAN PERCENT AUTO 0.4 % (0.0-0.4); LYMPHOCYTES ABSOLUTE AUTO 1.5 K/mm3 (1.0-4.8); LYMPHOCYTES PERCENT AUTO 16.6 % (24.0-44.0); MEAN CORPUSCULAR HEMOGLOBIN 29.5 pg (28.0-32.0); MEAN CORPUSCULAR HGB CONC 33.7 g/dl (32.0-36.0); MEAN CORPUSCULAR VOLUME 87.7 fl (83.0-99.0); MEAN PLATELET VOLUME 11.5 fl (9.4-12.3); MONOCYTES ABSOLUTE AUTO 0.7 K/mm3 (0.0-0.8); MONOCYTES PERCENT AUTO 7.8 % (0.0-8.0); NEUTROPHILS ABSOLUTE AUTO 6.7 K/mm3 (1.8-7.7); NEUTROPHILS PERCENT AUTO 74.2 % (41.0-71.0); PLATELET COUNT,PLT 233 K/mm3 (150-400); WHITE BLOOD CELL COUNT,WBC 9.05 K/mm3 (3.9-11.3)
[2023-12-26] MEDS: Terbutaline 1 MG/ML SDV SUBCUT ONE (16:04)
[2023-12-26 16:26] LABS: CREATININE,URINE RAND 92.2 mg/dL (30.0-125.0); PROTEIN CREATININE RATIO,URINE 198.5 mg/g (0-149); PROTEIN,URINE RANDOM 18.3 mg/dL (0.0-11.8)
[2023-12-26 16:38] LABS: CREATININE 0.7 mg/dL (0.55-1.02); EST CRCL DRUG DOSING (CG) 121.3 mL/min; URIC ACID 4.8 mg/dL (2.6-6.0)
[2023-12-27] MEDS ORDERED: ceFAZolin 2 GM in Sodium Chloride 0.9% 50 ML IV ONE (10:30)
[2023-12-27] MEDS ORDERED: Oxytocin/Lactated Ringers 30 UNIT/500 ML BAG IV SCH (10:30)
[2023-12-27] MEDS: Citric Acid/Sodium Citrate Solution 30 ML Cup PO ONE (12:05)
[2023-12-27] MEDS: Metoclopramide 10 MG/2 ML SDV IVPUSH ONE (12:05)
[2023-12-27] MEDS ORDERED: Meperidine 50 MG/ML Vial IVPUSH PRN (12:16)
[2023-12-27] MEDS ORDERED: fentaNYL 100 MCG/2 ML SDV IVPUSH PRN (12:16)
[2023-12-27] MEDS ORDERED: diphenhydrAMINE 50 MG/ML SDV IVPUSH PRN ×2 (12:16→14:21)
[2023-12-27] MEDS ORDERED: Ondansetron 4 MG/2 ML SDV IVPUSH PRN (12:16)
[2023-12-27] MEDS ORDERED: Morphine PF 10 MG/10 ML SDV ONE (12:21)
[2023-12-27] MEDS ORDERED: ceFAZolin 2 GM Vial ONE (12:30)
[2023-12-27] MEDS: Bupivacaine 0.5% 30 ML SDV ONE (12:44)
[2023-12-27] MEDS ORDERED: ePHEDrine 50 MG/ML SDV ONE (13:02)
[2023-12-27] MEDS ORDERED: Ketorolac 30 MG/ML SDV ONE (13:12)
[2023-12-27] MEDS ORDERED: Naloxone 0.4 MG/ML SDV IVPUSH PRN (14:21)
[2023-12-27] MEDS ORDERED: ePHEDrine 50 MG/ML SDV IVPUSH PRN (14:21)
[2023-12-27] MEDS ORDERED: Acetaminophen/oxyCODONE 325-5 MG Tab PO PRN (14:21)
[2023-12-27] MEDS: Dextrose 5%-Lactated Ringers 1,000 ML IV SCH (14:34)
[2023-12-27] MEDS: Ketorolac 30 MG/ML SDV IVPUSH SCH (19:21)
[2023-12-28] MEDS: Ketorolac 30 MG/ML SDV IVPUSH SCH (02:03)
[2023-12-28 06:27] LABS: BASOPHILS PERCENT AUTO 0.2 % (0.0-1.0); EOSINOPHILS ABSOLUTE AUTO 0.1 K/mm3 (0.0-0.4); EOSINOPHILS PERCENT AUTO 0.6 % (0.0-6.0); HEMATOCRIT 35.9 % (37.0-47.0); HEMOGLOBIN 11.9 gm/dl (12.0-16.0); IMMATURE GRAN ABSOLUTE AUTO 0.06 K/mm3 (0.00-0.05); IMMATURE GRAN PERCENT AUTO 0.5 % (0.0-0.4); LYMPHOCYTES ABSOLUTE AUTO 1.6 K/mm3 (1.0-4.8); LYMPHOCYTES PERCENT AUTO 14.2 % (24.0-44.0); MEAN CORPUSCULAR HEMOGLOBIN 29.6 pg (28.0-32.0); MEAN CORPUSCULAR HGB CONC 33.1 g/dl (32.0-36.0); MEAN CORPUSCULAR VOLUME 89.3 fl (83.0-99.0); MEAN PLATELET VOLUME 11.5 fl (9.4-12.3); MONOCYTES ABSOLUTE AUTO 0.8 K/mm3 (0.0-0.8); MONOCYTES PERCENT AUTO 7.1 % (0.0-8.0); NEUTROPHILS ABSOLUTE AUTO 8.4 K/mm3 (1.8-7.7); NEUTROPHILS PERCENT AUTO 77.4 % (41.0-71.0); PLATELET COUNT,PLT 210 K/mm3 (150-400); RED BLOOD CELL COUNT 4.02 M/mm3 (4.10-5.30); WHITE BLOOD CELL COUNT,WBC 10.91 K/mm3 (3.9-11.3)
[2023-12-28] MEDS: Ibuprofen 600 MG Tab PO SCH ×2 (13:37→19:55)
[2023-12-28] MEDS: Acetaminophen 325 MG Tab PO PRN (18:00)
[2023-12-29] MEDS: Acetaminophen/oxyCODONE 325-5 MG Tab PO PRN (01:45)
== END 2023-12-29 10:55 | disposition home or self-care (01) | DRG 540 ==
LOC: JD.OBCHECK 14:56 → JD.OB 15:01 → JD.OBCHECK 12-27 07:43
PROVIDERS: ADMIT Obstetrics & Gynecology; ATTEND Obstetrics & Gynecology
PROC: 10D00Z1 Extraction of Products of Conception, Low, Open Approach (ICD-10-PCS; principal; 2023-12-27 12:00)
DX: O13.4 Gestational [pregnancy-induced] hypertension without significant proteinuria, complicating childbirth (principal); O32.1XX0 Maternal care for breech presentation, not applicable or unspecified; Z3A.38 38 weeks gestation of pregnancy; Z37.0 Single live birth
CPT/HCPCS: 36415; 59025; 59412; 82565; 82570; 83615; 84156; 84450; 84460; 84520; 84550; 85025; 86592; 86850; 86900; 86901; 94762; A9270-GY; J0665; J0690; J1885; J2274; J2765; J3105; J3490; J7120; J7121; J7999